=== PATIENT | female | born 1940 | race Caucasian/White ===

== ENCOUNTER → 2017-12-05 | Day surgery (SDC) | payer MEDICARE ==
[~2017-12-05] MED LIST: ASPI81TA50 PO; BUPIVACAINE MPF 0.5% 30 ML VIAL. ONE; CEPH-264 PO; GABA-585 PO; HYDR50TA6 PO; IOHEXOL 300 MG/ML 50 ML VIAL. ONE; IV RINGERS SOLUTION,LACTATED 1,000 ML IV SCH; LIDOCAINE 1% PF 30 ML VIAL. ONE; LIDOCAINE 2% PF Vial for OR 5 ML VIAL. ONE; LISI40TA PO; LOSA25TA5 PO; MIDAZOLAM HCL PF 2 MG/2 ML VIAL. IV ONE; ONDANSETRON PF 4 MG/2 ML VIAL. IV PRN; PROPOFOL 20 ML IV ONE; TRAM50TA PO
[2017-12-05 12:53] VITALS: BP 139/65
== END | disposition home or self-care (01) ==
LOC: SURG 09:28
PROVIDERS: ATTEND Anesthesiology Pain Medicine
DX: M80.88XA Other osteoporosis with current pathological fracture, vertebra(e), initial encounter for fracture (principal); M54.5 Low back pain; I10 Essential (primary) hypertension; M19.90 Unspecified osteoarthritis, unspecified site; Z79.899 Other long term (current) drug therapy; Z98.890 Other specified postprocedural states
CPT/HCPCS: 22514; C1713; J0690; J2001; J2704; J3490; J7120; Q9967; 22513